=== PATIENT | male | born 1995 | race Caucasian/White ===

== ENCOUNTER 2019-08-17 01:01 | Emergency (ER) | payer SELFPAY ==
[2019-08-17 01:08] VITALS: BP 142/94; PULSE 118; RESP 16; TEMP 36.9; O2SAT 98
--- NOTE | 2019-08-17 01:12 | ED.WOUNDLAC ---
HPI - Wound/Laceration General Chief Complaint: Wound/Laceration Stated Complaint: spider bite Time Seen by Provider: 08/17/19 01:04 Source: patient Mode of arrival: ambulatory Limitations: no limitations History of Present Illness HPI narrative: Patient is a 24-year-old male who presents to the emergency department with complaint of wound to his left lower leg. Patient has had redness and swelling present for a few days. Patient tried popping the area a couple of days ago. He has had mild drainage of purulent material. He has had increased redness and swelling and pain. Patient thinks he may have been bit by something. He reports a prior history of staph infection and abscess on his face in the past. Onset (ago): day(s) Extremity Location: Left: lower leg Associated symptoms: pain Related Data Allergies Allergy/AdvReac Type Severity Reaction Status Date / Time No Known Allergies Allergy Verified 08/17/19 01:16 Review of Systems Review of Systems: All systems reviewed & are unremarkable except as noted in HPI and below PMFSH Past Medical History Medical History (Updated 08/17/19 @ 02:19 by Vijaya Mullen MD) Facial abscess MRSA infection Surgical History Surgical History (Updated 08/17/19 @ 01:14 by Vijaya Mullen MD) No significant past surgical history Social History Social History (Updated 08/17/19 @ 01:14 by Vijaya Mullen MD) Smoking status: Current every day smoker Exam Const: General: cooperative, no acute distress and alert Nutritional Appearance: well nourished Orientation/consciousness: patient oriented x3 Limitations: no limitations Resp: Effort & Inspection: normal respiratory effort Skin: General skin exam: normal color Wounds: wounds noted (Cutaneous abscess) left lower leg drainage purulent and with surrounding erythema Neuro: General: patient oriented x3 Cognition (Neuro): normal cognition Speech: normal speech Extrem: General: full ROM and no clubbing, cyanosis or edema Left lower extremity: lower leg Details: erythema, tenderness, localized swelling, warmth and other (Abscess) Psych: Mental Status: mental status grossly normal Affect: normal affect Attitude: cooperative Course Course Emergency Course: Patient with findings of cutaneous abscess and surrounding cellulitis. Patient given antibiotics in the ED and will be continued on antibiotics at home. Abscess spontaneously draining, but small incision made to facilitate thorough drainage. Vital Signs Vital signs: Vital Signs Temperature 98.5 F 08/17/19 01:08 Pulse Rate 118 H 08/17/19 01:08 Respiratory Rate 16 08/17/19 01:08 Blood Pressure 142/94 H 08/17/19 01:08 Pulse Oximetry 98 08/17/19 01:08 Temperature 98.5 F 08/17/19 01:08 Pulse Rate 118 H 08/17/19 01:08 Respiratory Rate 16 08/17/19 01:08 Blood Pressure 142/94 H 08/17/19 01:08 Pulse Oximetry 98 08/17/19 01:08 Procedures Abscess I/D lower extremity: Side (if applicable): left Sedation/analgesia: none Local Anesthetic: lidocaine 1% Technique: incised with #11 blade and probed loculations Irrigation: Yes Packing used?: none I&D Results: Pus and Blood Critical Care Time Critical Care Time Critical Care Time: No Discharge Plan Discharge Clinical Impression: Cellulitis and abscess of left leg Patient Disposition: Home, Self-Care Condition: Stable Instructions: Antibiotic Form, Cellulitis (ED), Abscess (ED), Abscess Incision and Drainage (DC) Additional Instructions: Antibiotics as prescribed. May take acetaminophen 1000 mg every 6 hours as needed for pain. May take ibuprofen 400-600 mg every 6 hours as needed for pain. Apply warm compress for 15 to 20 minutes to area of abscess 5-6 times a day. Alternatively, may soak in the bathtub or shower with warm water to help promote drainage. Follow-up with on-call primary care physician for further care
[2019-08-17] MEDS: CEPHALEXIN 500 MG CAPSULE PO (01:20)
[2019-08-17] MEDS: IBUPROFEN 600 MG TABLET PO (01:20)
[2019-08-17 01:50] VITALS: TEMP 36.9
[2019-08-17 02:29] VITALS: BP 141/94; PULSE 97; RESP 18; TEMP 36.9; O2SAT 100
== END 2019-08-17 02:32 | disposition home or self-care (01) ==
PROVIDERS: Emergency Provider Emergency Medicine
DX: L03.116 Cellulitis of left lower limb (principal); Z86.14 Personal history of Methicillin resistant Staphylococcus aureus infection; F17.200 Nicotine dependence, unspecified, uncomplicated
CPT/HCPCS: 10060; 99283; A9270

== ENCOUNTER 2019-09-02 00:25 | Emergency (ER) | payer SELFPAY ==
[2019-09-02 00:29] VITALS: BP 134/87; PULSE 126; RESP 18; TEMP 37.1; O2SAT 100
--- NOTE | 2019-09-02 00:40 | ED.SKABFB ---
HPI - Skin/Abscess/Foreign Bdy General Chief complaint: Skin/Abscess/Foreign Body Stated complaint: left knee abcess Time Seen by Provider: 09/02/19 00:34 Source: RN notes reviewed History of Present Illness HPI narrative: Patient presents emergency department from home for abscess of his left knee. Patient states symptoms began approximately 3 days ago. Patient states he began to have swelling erythema over his left lateral knee. He states at the beginning of the month he had abscess further down the leg and that it had an I&D performed emergency department and was placed on antibiotics with resolution of symptoms. He denies any drainage from the current abscess. He has full flexion extension of his knee with no difficulty except for pain right around the region of the abscess. He denies any fevers or chills or any other symptoms Related Data Allergies Allergy/AdvReac Type Severity Reaction Status Date / Time No Known Allergies Allergy Verified 09/02/19 00:32 Review of Systems Review of Systems: Narrative: Gen.: Denies fevers or chills Musculoskeletal: Denies knee or ankle pain Neuro: Denies numbness, tingling, weakness Skin: See HPI Endo: Denies DM PMFSH Past Medical History Medical History Facial abscess MRSA infection Surgical History Surgical History (Updated 08/17/19 @ 01:14 by Vijaya Mullen MD) No significant past surgical history Social History Social History Smoking status: Current every day smoker Gender identity (if verbalized by the patient): Male Exam Narrative: Exam Narrative: APPEARANCE: No acute distress, nontoxic, resting in bed Eyes: EOMI HEENT: Normocephalic, atraumatic, RESPIRATORY: No respiratory distress MUSCULOSKELETAl: No tenderness of the anterior medial or dorsal left knee with full flexion extension without pain, dorsalis pedis pulse 2+, neurovascular intact NEURO: Awake and alert. Following commands, speech normal, no focal deficits SKIN:: Warm, dry. Left lateral knee has a circular area of erythema with fluctuance consistent with abscess no active drainage Course Course Emergency Course: Discussed with patient results of workup and diagnosis. Discussed need for follow-up with primary care, proper use of medication, and reasons to return to the emergency department. Patient understands and agrees to current treatment plan Vital Signs Vital signs: Vital Signs Temperature 98.7 F 09/02/19 00:29 Pulse Rate 126 H 09/02/19 00:29 Respiratory Rate 18 09/02/19 00:29 Blood Pressure 134/87 09/02/19 00:29 Pulse Oximetry 100 09/02/19 00:29 Temperature 98.7 F 09/02/19 00:29 Pulse Rate 126 H 09/02/19 00:29 Respiratory Rate 18 09/02/19 00:29 Blood Pressure 134/87 09/02/19 00:29 Pulse Oximetry 100 09/02/19 00:29 Procedures Abscess I/D lower extremity: Side (if applicable): left Local Anesthetic: lidocaine 1% and with epi Amount of anesthesia used (mL): 1 Technique: incised with #11 blade and probed loculations Amount of fluid expressed (mL): 4 Irrigation: Yes Packing used?: none I&D Results: Pus Discharge Plan Discharge Clinical Impression: Abscess of knee, left Patient Disposition: Home, Self-Care Condition: Stable Instructions: Antibiotic Form, Abscess (ED) Additional Instructions: Return for increasing pain, worsening redness of the wound or any other symptoms of concern Prescriptions: New cephalexin [Keflex] 500 mg capsule 500 mg PO Q6H Qty: 40 RF: 0 ibuprofen [IBU] 600 mg tablet 600 mg PO Q6H PRN (Reason: pain) Qty: 20 RF: 0 sulfamethoxazole-trimethoprim [Bactrim DS] 800-160 mg tablet 1 tablet PO Q12H Qty: 20 RF: 0 Follow-up/Referrals: Jonah Garcia MD [Physician] - (Follow-up in 1-2 days for further on-call physician treatment and e
[2019-09-02] MEDS: CEPHALEXIN 500 MG CAPSULE PO (01:49)
[2019-09-02 02:13] VITALS: BP 129/89; PULSE 99; RESP 14; TEMP 36.5; O2SAT 94
== END 2019-09-02 02:15 | disposition home or self-care (01) ==
PROVIDERS: Emergency Provider Emergency Medicine
DX: L02.416 Cutaneous abscess of left lower limb (principal); Z86.14 Personal history of Methicillin resistant Staphylococcus aureus infection; F17.200 Nicotine dependence, unspecified, uncomplicated
CPT/HCPCS: 10060; 99283; A9270